=== PATIENT | male | born 1985 | race Caucasian/White ===

== ENCOUNTER 2017-07-10 07:34 | Emergency (ER) | payer MEDICAID ==
[~2017-07-10] VITALS: Ht 165.1 cm; Wt 64.0 kg
[2017-07-10] MEDS ORDERED: MORPHINE SULFATE 4 MG/ML CPJ (NOT FOR IM USE) IV STA ×2 (08:33→13:40)
[2017-07-10] MEDS ORDERED: BACITRACIN ZINC OINT UDPKT TOP ONE ×2 (08:45→13:45)
[2017-07-10] MEDS ORDERED: TETANUS, DIPHTHERIA, PERTUSSIS VAC/PF 0.5ML (>7YR OLD) IM ONE (08:45)
[2017-07-10 09:04] LABS: BASOPHILS % 0.4 % (0.0-2.0); CHLORIDE 108 mEq/L (98-107); EOSINOPHILS % 0.2 % (0.0-5.0); HEMATOCRIT. 42.2 % (42.0-52.0); HEMOGLOBIN. 14.6 g/dL (14.0-18.0); LYMPHOCYTES % 8.7 % (20.0-50.0); MEAN CORPUSCULAR HEMOGLOBIN 30.1 pg (28.0-32.0); MEAN CORPUSCULAR VOLUME 86.7 fL (80.0-94.0); MEAN PLATELET VOLUME 8.1 fl (7.4-10.4); MONOCYTES % 3.4 % (2.0-8.0); NEUTROPHILS % 87.3 % (40.0-76.0); PLATELET 289 x1000/uL (130-400); RED BLOOD CELL COUNT 4.86 mill/uL (4.7-6.1); RED CELL DISTRIBUTION WIDTH 13.8 % (11.6-14.6)
[2017-07-10 09:12] LABS: CARBON DIOXIDE 30 mEq/L (21-32)
[2017-07-10 11:08] LABS: CLARITY URINE CLEAR (CLEAR); COLOR URINE YELLOW (YELLOW); KETONES URINE NEGATIVE (NEGATIVE); LEUKOCYTE ESTERASE URINE NEGATIVE (NEGATIVE); NITRITE URINE NEGATIVE (NEGATIVE); OCCULT BLOOD URINE NEGATIVE (NEGATIVE); PH URINE 5.5 (4.5-8.0); PROTEIN URINE NEGATIVE (NEGATIVE); SPECIFIC GRAVITY URINE 1.017 (1.005-1.030); UROBILINOGEN URINE 0.2 E.U./dL (0.2-1.0)
[2017-07-10] MEDS ORDERED: LIDOCAINE HCL 1% 20ML VIAL (Pyxis) INJ MC ONE (11:45)
[2017-07-10] MEDS ORDERED: KETOROLAC 30MG/ML VIAL IV STA (13:40)
[2017-07-10 15:30] VITALS: BP 101/71
== END 2017-07-10 15:33 | disposition home or self-care (01) ==
LOC: ER 07:41
DX: S02.2XXA Fracture of nasal bones, initial encounter for closed fracture (principal); S01.511A Laceration without foreign body of lip, initial encounter; S01.21XA Laceration without foreign body of nose, initial encounter; M54.2 Cervicalgia; Y08.89XA Assault by other specified means, initial encounter; Y93.89 Activity, other specified; Y92.89 Other specified places as the place of occurrence of the external cause; Y99.8 Other external cause status
CPT/HCPCS: 12013; 36415; 70450; 70486; 72125; 73080; 80053; 81003; 85025; 90471; 90715; 96374; 99285; J2270; J3490; Z7610

== ENCOUNTER 2017-07-12 13:17 | Emergency (ER) | payer MEDICAID ==
[~2017-07-12] VITALS: Ht 177.8 cm; Wt 64.0 kg
[2017-07-12 13:27] VITALS: BP 125/89
== END 2017-07-12 17:24 | disposition left against medical advice (07) ==
LOC: ER 13:27
DX: Z53.21 Procedure and treatment not carried out due to patient leaving prior to being seen by health care provider (principal)

== ENCOUNTER 2017-07-13 08:56 | Emergency (ER) | payer MEDICAID ==
[~2017-07-13] VITALS: Ht 172.7 cm; Wt 60.0 kg
[2017-07-13 10:37] VITALS: BP 112/75
== END 2017-07-13 12:25 | disposition home or self-care (01) ==
LOC: ER 09:34
DX: S01.511D Laceration without foreign body of lip, subsequent encounter (principal); S01.21XD Laceration without foreign body of nose, subsequent encounter; S01.412D Laceration without foreign body of left cheek and temporomandibular area, subsequent encounter; Y09 Assault by unspecified means
CPT/HCPCS: 99283; X7700; Z7610

== ENCOUNTER 2017-07-15 08:26 | Emergency (ER) | payer MEDICAID ==
[~2017-07-15] VITALS: Ht 162.6 cm; Wt 59.0 kg
[2017-07-15 10:50] VITALS: BP 106/66
== END 2017-07-15 11:11 | disposition home or self-care (01) ==
LOC: ER 08:48
DX: S01.412D Laceration without foreign body of left cheek and temporomandibular area, subsequent encounter (principal); S01.21XD Laceration without foreign body of nose, subsequent encounter; X58.XXXD Exposure to other specified factors, subsequent encounter
CPT/HCPCS: 99283

== ENCOUNTER 2017-07-18 07:39 | Emergency (ER) | payer MEDICAID ==
[~2017-07-18] VITALS: Ht 170.2 cm; Wt 59.0 kg
[2017-07-18] MEDS ORDERED: BACITRACIN ZINC OINT UDPKT TOP ONE (14:45)
[2017-07-18 15:13] VITALS: BP 110/65
== END 2017-07-18 15:13 | disposition home or self-care (01) ==
LOC: ER 07:39
DX: Z48.02 Encounter for removal of sutures (principal)
CPT/HCPCS: 99282